=== PATIENT | female | born 1940 | race Caucasian/White ===

== ENCOUNTER 2019-01-16 17:13 | Inpatient (IN) ==
[2019-01-16] MEDS ORDERED: MORPHINE SULFATE 4 MG/ML SYRG IV ONE (17:19)
[2019-01-16 18:05] LABS: Urine Bilirubin Negative (NEGATIVE); Urine Blood Negative /ul (NEGATIVE); Urine Ketone Negative (NEGATIVE); Urine Nitrite Negative (NEGATIVE); Urine Protein Negative (NEGATIVE); Urine Urobilinogen Normal (NORMAL)
[2019-01-16 18:10] LABS: Urine Appearance Clear (CLEAR); Urine Bacteria None Seen; Urine Color Yellow; Urine RBC 0-5 /hpf (0-5); Urine WBC None Seen /hpf (0-5)
[2019-01-16 18:44] LABS: Hematocrit 37.7 % (37.0-47.0); Hemoglobin 12.5 gm/dL (12.5-16.0); Mean Cell Volume 91.5 fl (78-100); Mean Corpuscular Hemoglobin 30.3 pg (27-31); Mean Corpuscular Hgb Conc 33.2 g/dl (32-36); Mean Platelet Volume 9.6 fl (8-12.5); Neutrophil # 5.4 K/mm3 (1.3-6.0); Neutrophil % 74.1 % (42-75.0); Platelet Count 224 K/mm3 (150-450); Red Blood Count 4.12 M/mm3 (4.2-5.4); Red Cell Distribution Width 13.5 % (11.5-14.0); White Blood Count 7.3 K/mm3 (4.0-10.5)
[2019-01-16 18:54] LABS: Prothrombin Time (Patient) 11.1 Seconds (9.1-10.7)
[2019-01-16 18:55] LABS: INR 1.13 INR (0.92-1.08); Partial Thrombolplastin Time 25.8 Seconds (24-32)
[2019-01-16 18:57] LABS: Albumin * 3.7 gm/dl (3.4-5.0); Anion Gap 13.1 mmol/L (6.8-13.8); Bilirubin, Total 0.6 mg/dL (0.0-1.1); Ca. Corrected For Albumin 8.9 mg/dL (8.4-10.2); Carbon Dioxide 28.6 mmol/L (24-32.6); Potassium 3.7 mmol/L (3.4-4.6); Total Protein 6.9 gm/dL (6.2-8.2)
--- NOTE | 2019-01-16 19:17 | ERNOTE ---
Lower Extremity HPI - Narrative Date of Service: 01/16/19 - General Lower Extremities Pain: hip: left Time Seen by Provider: 01/16/19 17:18 Source: patient, RN notes reviewed Exam Limitations: no limitations - Immun/Allergies/Home Medications Immunizations: IMMUNIZATION HX Immunizations Up to Date Yes History of Influenza Vaccine Yes Hx Pneumococcal Vaccination Yes Allergies/Adverse Reactions: Allergies Allergy/AdvReac Type Severity Reaction Status Date / Time pravastatin [From Pravachol] AdvReac Unknown Achy Arms Verified 01/16/19 17:19 Home Medications: HOME MEDICATIONS Ascorbic Acid [Vitamin C] 1,000 mg PO DAILY 04/29/12 [Last Taken Unknown] Calcium Carbonate/Vitamin D3 [Calcium 600 + Vit D Caplet] 1 ea PO DAILY 04/29/12 [Last Taken Unknown] aspirin 81 mg tablet,delayed release 81 mg PO DAILY 11/30/17 [Last Taken Unknown] omega-3 fatty acids 1,000 mg capsule 2,000 mg PO DAILY cap 11/30/17 [Last Taken Unknown] metoprolol tartrate 25 mg tablet 12.5 mg PO BID #60 tab 02/05/18 [Last Taken Unknown] rosuvastatin 20 mg tablet 20 mg PO HS #90 tab 12/05/18 [Last Taken Unknown] - History of Present Illness Narrative: Hazel is a 78 year old female brought to the ED by ambulance after a fall. She was at a friend's house when she missed a step and fell onto her left hip. She reports pain in her left groin. She has not been able to bear weight on the injured extremity. She has no prior history of injury to her left hip. She denies any other injuries. Date (Duration): 01/16/19 Occurred: this afternoon Method of Injury: Reports: fell Loss of Consciousness: Reports: no loss of consciousness Modifying Factors - (Improves): Reports: immobilization Modifying Factors - (Worsens): Reports: movement Associated Symptoms: Reports: unable to bear weight. Denies: snapping, popping sensation Other Injuries: Reports: none Subsequent Symptoms: Denies: sensory loss, numbness, motor loss Prior Treament: Denies: recently seen, similar symptoms before Review of Systems - Review of Systems Constitutional: Absent: recent illness, fever, malaise EYE: Present: no symptoms reported ENT: Present: no symptoms reported Respiratory: Absent: shortness of breath, cough Cardiology: Absent: chest pain, syncope, edema Gastrointestinal/Abdominal: Absent: nausea, abdominal pain Genitourinary: Present: no symptoms reported Musculoskeletal: Present: muscle pain, joint pain. Absent: back pain, neck pain Skin: Absent: lesions, lumps, change in color Neurological: Absent: weakness, numbness, tingling Endocrine: Present: no symptoms reported Hematologic/Lymphatic: Absent: easy bruising, easy bleeding Psych: Present: no symptoms reported Medical History (Updated 09/04/18 @ 18:04 by Corinne Sanchez MD) Abnormality on bone densitometry Onset Date: ~09/04/07 Spine 1.1, hip 1.1 Atrial fibrillation Carotid bruit Chronic sinusitis Colonic polyp Onset Date: ~12/02/03 hyperplastic Diverticulosis of colon Dysphagia Encounter for Hemoccult screening Onset Date: ~09/25/07 negative x3 Essential hypertension Onset Date: ~08/07/13 GERD (gastroesophageal reflux disease) 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 Herron History of colonoscopy Onset Date: ~[address] Palma, hyperplastic polyp 2005 Dr. Hickman, WNL repeat 10 years History of esophagogastroduodenoscopy (EGD) Onset Date: ~12/26/13 w/biopsy, mild gastritis, Dr. Palma [facility] History of exploratory laparotomy Onset Date: ~12/10/89 resecting cystic mesothelioma of the pelvis in the cul-de-sac History of knee replacement Onset Date: Unknown bilateral 1990-left; 1996-right History of left heart catheterization Onset Date: ~1996 due to EF-70% w/ minimal blockage History of lobectomy of lung Onset Date: ~01/23/11 Left upper lobe History of tonsillectomy Onset Date: ~1952 History of total abdominal hysterectomy and bilateral salpingo-oophorectomy Onset Date: ~1990 [facility] Family History: Family History (Updated 11/30/17 @ 14:17 by Kamla Steiner CMA) Brother Heart disease hx of bypass Father , age 59 COPD (chronic obstructive pulmonary disease) Black lung disease coal deliverer Mother , age 65 Myocardial infarction Colon cancer, Onset Age: 60 Sister , age 65 Diabetes Heart disease Social History: (Last Reviewed 01/16/19 @ 18:56 by Suzie Olivo NP) Social History: adopted: No foster care: No Marital status: household members: spouse number of children: 3 current occupational status: retired Previous occupational history: Grocery Deliverer Highest education level completed: high school graduate Service: No Tobacco: Smoking Status: Never smoker Alcohol: alcohol intake: current Alcohol type: wine alcohol intake frequency: a few times a week Substance Use: substance use type: does not use Dietary Habits: caffeine: Yes Physical Exam - Physical Exam General Appearance: Present: wd/wn, alert, mild distress, anxious Head Exam: Present: normal inspection, no evidence of injury Eye Exam: Normal inspection: bilateral Neck: Present: normal inspection, nontender, supple Respiratory: Present: no respiratory distress, normal breath sounds, no a ccessory muscle use, lungs clear Cardiovascular/Chest: Present: regular rate, rhythm, no murmur, normal peripheral pulses Peripheral Pulses: N=norm/S=strong/W=weak/B=bound/A=absent: Dorsalis-pedis (R): Normal, Dorsalis-pedis (L): Normal Gastrointestinal/Abdominal: Present: nontender, nondistended, soft Extremity Exam: Present: no edema, decreased range of motion - Left hip, bony tenderness - Left hip Neurological Exam: Present: alert, oriented, normal mood/affect, no mot or/sensory deficits Skin Exam: Present: normal color, warm/dry Progress - Results and Orders Patient's Lab Results:: I have reviewed the patient's lab results. - Vital Signs Patient's Vital Signs:: I have reviewed the patient's vital signs. Vital Signs: Vital Signs 01/16/19 17:17 01/16/19 17:25 Temperature 36.9 C Pulse Rate 72 72 Respiratory Rate 15 15 Blood Pressure 156/64 H 148/61 O2 Sat by Pulse Oximetry 94 95 - X-Ray X-Ray #1 X-Ray: hip - Left Interpretation: Interp. by me X-ray Comments: Intertrochanteric fracture of left hip X-Ray #2 X-Ray: chest Interpretation: Interp. by me X-ray Comments: S/P left upper lobectomy, no acute process noted - Progress/Reassessment Chief Complaint: Hip Pain/Injury Progress:: Improved Plan - Plan Plan: [facility] was contacted. The patient will likely have surgery tomorrow. Dr. Turner was contacted and agreed to admit the patient to med/surg. Plans discussed with patient. She is pleasant and agreeable. She was given 4 mg of Morphine IV prior to her xray and has not required any additional pain medication. Departure Clinical Impression: Hip fracture, left Qualifiers: Encounter type: initial encounter Fracture type: closed Qualified Code(s): S72.002A - Fracture of unspecified part of neck of left femur, initial encounter for closed fracture - Departure Disposition: Still a patient Condition: Stable Referrals: Corinne Sanchez MD [Primary Care Provider] -
--- NOTE | 2019-01-16 20:49 | HP ---
Chief Complaint - Chief Complaint Date of Service: 01/16/19 Time of Service: 20:28 Chief Complaint: left hip pain History of Present Illness: 78-year-old female presented to the ER today following a ground-level fall with left hip pain. X-ray from the ER confirmed left intertrochanteric hip fracture likely requiring a left total hip arthroplasty with Ortho tomorrow. [facility] Momin has been consulted, Dr. Swanson agrees to take back for surgery tomorrow. Patient has significant medical history with A. fib currently only been rate controlled as well as history of resected left upper bronchus neoplasm. Both are stable and overall patient is in pretty good shape. Both her vital signs and lab work are in an acceptable range, no issues here. Patient has good kidney function is not anemic. Main concern at this time as patient is slightly nauseated from the pain and the pain medicine she received in the ER is wearing off. Patient was admitted to the floor under inpatient status. 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 Herron History of colonoscopy Onset Date: ~[address] Palma, hyperplastic polyp 2006 Dr. Hickman, WNL repeat 10 years History of esophagogastroduodenoscopy (EGD) Onset Date: ~12/26/13 w/biopsy, mild gastritis, Dr. Palma [facility] History of exploratory laparotomy Onset Date: ~12/10/89 resecting cystic mesothelioma of the pelvis in the cul-de-sac History of knee replacement Onset Date: Unknown bilateral 1990-left; 1996-right History of left heart catheterization Onset Date: ~1996 due to EF-70% w/ minimal blockage History of lobectomy of lung Onset Date: ~01/23/11 Left upper lobe History of tonsillectomy Onset Date: ~1952 History of total abdominal hysterectomy and bilateral salpingo-oophorectomy Onset Date: ~[address] 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 Absent: Vomiting Genitourinary: Present: No Symptoms Reported Musculoskeletal: Present: Joint Pain Neurological: Absent: Numbness, Parasthesia, Tingling Skin: Present: No Symptoms Reported Immunizations: IMMUNIZATION HX Immunizations Up to Date Yes History of Influenza Vaccine Yes Hx Pneumococcal Vaccination Yes Allergies/Adverse Reactions: Allergies Allergy/AdvReac Type Severity Reaction Status Date / Time pravastatin [From Pravachol] AdvReac Unknown Achy Arms Verified 01/16/19 17:19 Home Medications: HOME MEDICATIONS Ascorbic Acid [Vitamin C] 1,000 mg PO DAILY 04/29/12 [Last Taken Unknown] Calcium Carbonate/Vitamin D3 [Calcium 600 + Vit D Caplet] 1 ea PO BID 04/29/12 [Last Taken Unknown] aspirin 81 mg tablet,delayed release 81 mg PO DAILY 11/30/17 [Last Taken Unknown] metoprolol tartrate 25 mg tablet 12.5 mg PO BID #60 tab 02/05/18 [Last Taken Unknown] rosuvastatin 20 mg tablet 20 mg PO HS #90 tab 12/05/18 [Last Taken Unknown] Exam - Exam Vital Signs: Vital Signs - Last Taken Temp 36.6 C 01/16/19 20:01 Pulse 79 01/16/19 20:01 Resp 16 01/16/19 20:01 BP 128/52 01/16/19 20:01 Pulse Ox 98 01/16/19 20:01 Constitutional: Present: Alert, Oriented x3, Cooperative, Moderate distress Eye Exam: bilateral eye: normal inspection, PERRL, EOMI Neck: Present: non-tender, supple, normal inspection Back Exam: Present: normal inspection, no CVA tenderness, no vertebral tenderness Breasts: Present: Exam deferred Respiratory: Present: lungs clear, normal breath sounds Cardiovascular/Chest: Present: no murmur, irregularly irregular Peripheral Pulses: dorsalis-pedis (R): 2+, dorsalis-pedis (L): 2+ Abdomen: Present: Normal bowel sounds, soft, nontender, nondistended Extremity: Present: leg pain, swelling. Absent: pedal edema Neurologic: Present: alert, normal mood/affect, oriented x 3. Absent: motor weakness, sensory deficit Appearance: Present: appropriate appearance, appropriate insight Eye contact: Present: cooperative, good eye contact Thoughts: Present: normal thought pattern, normal mood /affect Diagnostic Studies: Abnormal Lab Results 01/16/19 01/16/19 01/16/19 Range/Units 18:35 18:35 18:37 RBC 4.12 L (4.2-5.4) M/mm3 Immature Gran % (Auto) 1.10 H (0.001-0.429) % Immature Gran # (Auto) 0.08 H (0.000-0.0310) K/mm3 Lymphocytes % 17.6 L (20-51) % Lymphocytes # 1.29 L (1.5-3.5) k/mm3 PT 11.1 H (9.1-10.7) Seconds INR (Anticoag Therapy) 1.13 H (0.92-1.08) INR ALT 13 L (19-67) U/L Laboratory Results WBC 7.3 K/mm3 (4.0-10.5) 01/16/19 18:35 RBC 4.12 M/mm3 (4.2-5.4) L 01/16/19 18:35 Hgb 12.5 gm/dL (12.5-16.0) 01/16/19 18:35 Hct 37.7 % (37.0-47.0) 01/16/19 18:35 MCV 91.5 fl (78-100) 01/16/19 18:35 MCH 30.3 pg (27-31) 01/16/19 18:35 MCHC 33.2 g/dl (32-36) 01/16/19 18:35 RDW 13.5 % (11.5-14.0) 01/16/19 18:35 Plt Count 224 K/mm3 (150-450) 01/16/19 18:35 MPV 9.6 fl (8-12.5) 01/16/19 18:35 Immature Gran % (Auto) 1.10 % (0.001-0.429) H 01/16/19 18:35 Immature Gran # (Auto) 0.08 K/mm3 (0.000-0.0310) H 01/16/19 18:35 74.1 % (42-75.0) 01/16/19 18:35 17.6 % (20-51) L 01/16/19 18:35 6.4 % (0.0-9) 01/16/19 18:35 0.5 % (0.0-3.0) 01/16/19 18:35 0.3 % (0.0-1.0) 01/16/19 18:35 Nucleated RBC % 0.0 k/mm3 (0-1) 01/16/19 18:35 5.4 K/mm3 (1.3-6.0) 01/16/19 18:35 1.29 k/mm3 (1.5-3.5) L 01/16/19 18:35 0.5 k/mm3 (0.0-1.0) 01/16/19 18:35 0.0 k/mm3 (0.0-0.7) 01/16/19 18:35 Absolute Basophils 0.0 k/mm3 (0.0-0.1) 01/16/19 18:35 PT 11.1 Seconds (9.1-10.7) H 01/16/19 18:37 INR (Anticoag Therapy) 1.13 INR (0.92-1.08) H 01/16/19 18:37 PTT (Karen) 25.8 Seconds (24-32) 01/16/19 18:37 Sodium 139 mmol/L (132-142) 01/16/19 18:35 139 mmol/L (130-142) 01/16/19 18:35 Potassium 3.7 mmol/L (3.4-4.6) 01/16/19 18:35 Chloride 101 mmol/L (97-106) 01/16/19 18:35 Carbon Dioxide 28.6 mmol/L (24-32.6) 01/16/19 18:35 13.1 mmol/L (6.8-13.8) 01/16/19 18:35 BUN 14 mg/dL (3-23) 01/16/19 18:35 0.70 mg/dL (0.4-1.4) 01/16/19 18:35 Est GFR (Non-Af Amer) 86 mL/min (60-130) 01/16/19 18:35 20.0 (9.0-21.6) 01/16/19 18:35 105 mg/dL (70-110) 01/16/19 18:35 Calcium 9.0 mg/dL (7.9-10.9) 01/16/19 18:35 Calcium Adj for Albumin 8.9 mg/dL (8.4-10.2) 01/16/19 18:35 0.6 mg/dL (0.0-1.1) 01/16/19 18:35 AST 19 U/L (0-48) 01/16/19 18:35 ALT 13 U/L (19-67) L 01/16/19 18:35 58 U/L (50-170) 01/16/19 18:35 6.9 gm/dL (6.2-8.2) 01/16/19 18:35 3.7 gm/dl (3.4-5.0) 01/16/19 18:35 Yellow 01/16/19 17:53 Clear (CLEAR) 01/16/19 17:53 6.0 pH (5.0-7.0) 01/16/19 17:53 Ur Specific [place] 1.010 SP.GR. (1.005-1.010) 01/16/19 17:53 Negative mg/dL (NEGATIVE) 01/16/19 17:53 Negative mg/dL (NEGATIVE) 01/16/19 17:53 Negative mg/dL (NEGATIVE) 01/16/19 17:53 Negative /ul (NEGATIVE) 01/16/19 17:53 Negative (NEGATIVE) 01/16/19 17:53 Negative mg/dl (NEGATIVE) 01/16/19 17:53 Normal EU/dl (NORMAL) 01/16/19 17:53 Ur Leukocyte Esterase Negative /ul (NEGATIVE) 01/16/19 17:53 0-5 /hpf (0-5) 01/16/19 17:53 None seen /hpf (0-5) 01/16/19 17:53 Ur Epithelial Cells 0-5 /hpf (0-5) 01/16/19 17:53 None seen (NONE) 01/16/19 17:53 No culture indicated 01/16/19 17:53 Assessment/Plan - Narrative Narrative: 78-year-old female with left intertrochanteric hip fracture admitted to the floor as inpatient. Ortho has been consulted and likely to back for surgery tomorrow. Vital signs are stable, blood pressure well controlled. Patient cleared for surgery from a medical standpoint. We will continue morphine 2 mg every hour as needed for pain control as well as Zofran 4 mg IV as needed as needed for nausea. Patient will be made n.p.o. at midnight with normal saline running at 100 mils an hour thereafter. Will order IV hypertensive medications if needed though this is unlikely. Will follow with the patient after surgery tomorrow, patient is in agreement with treatment plan. Nurse will call with any questions or concerns. SCDs more in the right leg only comfort measures and DVT prophylaxis. Current medications continued tonight and will be resumed once patient is no longer n.p.o. - Assessment/Plan (1) Hip fracture, left Problem: Acute Qualifiers: Encounter type: initial encounter Fracture type: closed Qualified Code(s): S72.002A - Fracture of unspecified part of neck of left femur, initial encounter for closed fracture (2) Paroxysmal A-fib Problem: Chronic (3) Hypertension Problem: Chronic Qualifiers:
[2019-01-16] MEDS: MORPHINE SULFATE 2 MG/ML DISP.SYRIN IV PRN ×2 (20:52→22:54)
[2019-01-16] MEDS: ONDANSETRON HCL/PF 2 MG/ML VIAL IV PRN (20:53)
[2019-01-16] MEDS ORDERED: ROSUVASTATIN CALCIUM 10 MG TABLET ONE (21:50)
[2019-01-16] MEDS ORDERED: METOPROLOL TARTRATE 100 MG TABLET ONE (21:51)
[2019-01-16] MEDS: ROSUVASTATIN CALCIUM 20 MG TABLET PO SCH (21:55)
[2019-01-16] MEDS: METOPROLOL TARTRATE 25 MG TABLET PO SCH (21:57)
[2019-01-17] MEDS ORDERED: NORMAL SALINE 1,000 ML IV PRN ×2 (00:01→14:29)
[2019-01-17] MEDS: MORPHINE SULFATE 2 MG/ML DISP.SYRIN IV PRN ×4 (03:24→18:18)
[2019-01-17] MEDS ORDERED: ceFAZolin SODIUM 1 GM VIAL IV PRN (06:00)
--- NOTE | 2019-01-17 08:16 | CONS ---
- Reason for consultation (1) Hip fracture, left Date of Service: 01/17/19 HPI - General Date of Service: 01/17/19 Narrative: 78-year-old female brought to the ER status post a ground-level fall with left hip pain. X-rays revealed a intertrochanteric femur fracture. Patient was admitted and has been monitored and seen by the medical team. Patient notes her pain is well controlled currently. She notes her pain is worse with movement better with rest. She notes she does have a history of cancer with a lobectomy of her lung, cardiac cath, A. fib, and surgical history including total joint replacements. Patient notes no other acute events currently. Source: patient, family - History of Present Illness Allergies/Adverse Reactions: Allergies pravastatin [From Pravachol] Adverse Reaction (Unknown, Verified 01/16/19 17:19) Achy Arms Home Medications: Home Medications Medication Instructions Recorded Last Taken Ascorbic Acid [Vitamin C] 1,000 mg PO DAILY 04/29/12 Unknown Calcium Carbonate/Vitamin D3 1 ea PO BID 04/29/12 Unknown [Calcium 600 + Vit D Caplet] aspirin 81 mg tablet,delayed 81 mg PO DAILY 11/30/17 Unknown release metoprolol tartrate 25 mg tablet 12.5 mg PO BID #60 tab 02/05/18 Unknown rosuvastatin 20 mg tablet 20 mg PO HS #90 tab 12/05/18 Unknown Procedures Colonoscopy (02/28/06) Endoscopic polypectomy of large intestine (12/02/03) Medications - Medications Current Medications: Current Medications Sodium Chloride (Sodium Chloride 0.9%) 1,000 mls @ 100 mls/hr IV .Q10H PRN PRN Reason: HYDRATION Stop: 02/16/19 00:02 Last Admin: 01/17/19 00:27 Dose: 100 mls/hr Documented by: Metoprolol Tartrate (Lopressor) 12.5 mg PO BID FIFI Stop: 02/15/19 21:01 Last Admin: 01/16/19 21:57 Dose: Not Given Documented by: Morphine Sulfate (Morphine Sulfate) 2 mg IV Q1H PRN PRN Reason: Pain Stop: 02/15/19 20:25 Last Admin: 01/17/19 06:51 Dose: 2 mg Documented by: Ondansetron HCl (Zofran) 4 mg IV Q4H PRN PRN Reason: Nausea Stop: 02/15/19 20:26 Last Admin: 01/16/19 20:53 Dose: 4 mg Documented by: Rosuvastatin Calcium (Crestor) 20 mg PO HS FIFI Stop: 02/15/19 21:01 Last Admin: 01/16/19 21:55 Dose: 20 mg Documented by: Physical Examination - Exam Vital Signs: Vital Signs - Last Taken Temp 36.2 C 01/17/19 06:17 Pulse 75 01/17/19 06:17 Resp 18 01/17/19 06:17 BP 121/51 01/17/19 06:17 Pulse Ox 93 01/17/19 06:17 O2 Oxygen Delivery Method Room Air Constitutional: Present: Alert, Cooperative, No distress Respiratory: Present: no respiratory distress Extremity: Present: other - LLE--> no obvious wounds or deformity, diffuse tenderness about left hip, sensation intact light touch, distal capillary refill brisk, 5/5 plantar flexion dorsiflexion of the ankle Eye contact: Present: cooperative Thoughts: Present: normal thought pattern - Results and Findings: Lab/Microbiology results last 24 hrs: Abnormal/Pending Laboratory Last 24 HRS 01/16/19 01/16/19 01/16/19 18:37 18:35 18:35 RBC 4.12 L Immature Gran % (Auto) 1.10 H Immature Gran # (Auto) 0.08 H Lymphocytes % 17.6 L Lymphocytes # 1.29 L PT 11.1 H INR (Anticoag Therapy) 1.13 H ALT 13 L - Assessments/Findings (1) Hip fracture, left Problem: Acute Qualifiers: Encounter type: initial encounter Fracture type: closed Qualified Code(s): S72.002A - Fracture of unspecified part of neck of left femur, initial encounter for closed fracture Plan - Plan Plan: - 78 y/o female admitted status post a ground-level fall with a left intertrochanteric femur fracture. -Discussed with patient conservative or surgical intervention including risks versus benefits including but not limited to infection, bleeding, malunion versu s nonunion fracture healing, DVT risk, cardiac and stroke risk, inherent surgical risk. Discussed with patient the treatment process and the continued care and follow-up including physical therapy as well as monitoring postoperatively. Patient wishes to proceed with surgical intervention. Consent was obtained all questions were answered with the family and patient. Plan to proceed with surgical intervention on 01/17/2019. Patient will continue her stay in the hospital postoperatively for monitoring, PT/OT, pain control, postoperative complications.
[2019-01-17] MEDS ORDERED: DEXTROSE 5%-0.5 NORMAL SALINE 1,000 ML IV PRN (08:45)
--- NOTE | 2019-01-17 08:47 | PN ---
Subjective - Date and Time Seen Date: 01/17/19 Time: 08:29 Subjective Narrative: Patient is AAO x 3. Afebrile. she tripped over uneven floor in her friend's house and fell and could not stand up due to severe pain. Objective - Review of Systems Generalized/Overall Review: Denies: Chills, Fever EENTM: Denies: Blurred Vision Respiratory: Denies: Cough, Shortness of Breath, Orthopnea, Wheezing Cardiac: Denies: Chest Pain, Edema, Palpitations Abdominal: Denies: Nausea, Vomiting, Abdominal Pain Genitourinary Symptoms: Denies: Urgency, Frequency Musculoskeletal Complaints: Reports: Joint Pain Neurological: Denies: Headache Skin: Denies: Rash, Change in Color Endocrine: Denies: Intolerance to Cold, Intolerance to Heat Misc: All systems neg except as marked - Vitals Vitals: Last Vital Signs Temp 36.2 C 01/17/19 06:17 Pulse 75 01/17/19 06:17 Resp 18 01/17/19 06:17 BP 121/51 01/17/19 06:17 Pulse Ox 93 01/17/19 06:17 - Abnormal Lab Findings Abnormal Lab Findings: Abnormal Lab Results 01/16/19 01/16/19 01/16/19 Range/Units 18:35 18:35 18:37 RBC 4.12 L (4.2-5.4) M/mm3 Immature Gran % (Auto) 1.10 H (0.001-0.429) % Immature Gran # (Auto) 0.08 H (0.000-0.0310) K/mm3 Lymphocytes % 17.6 L (20-51) % Lymphocytes # 1.29 L (1.5-3.5) k/mm3 PT 11.1 H (9.1-10.7) Seconds INR (Anticoag Therapy) 1.13 H (0.92-1.08) INR ALT 13 L (19-67) U/L - Exam Constitutional: Present: Alert, Oriented x3, Cooperative, Elderly ENT Exam: Present: hearing grossly normal Neck: Present: supple. Absent: lymphadenopathy (R), lymphadenopathy (L) Respiratory: Present: normal breath sounds, No rales, No wheezing Cardiovascular/Chest: Present: regular rate, rhythm, no JVD, no murmur Abdomen: Present: Normal bowel sounds, soft, nontender, nondistended Extremity: Present: no pedal edema, no calf tenderness, other - SCD on Cauti Physician Documentation - Urinary Catheter Management Urethral (Sullivan) Date of Insertion: 01/16/19 Time of Insertion: 19:03 Assessment/Plan Plan Narrative: Continue with present management and current medications. she is for OR today. she will have PT/OT and DVT prophylaxis post surgery. - Problems/Diagnosis (1) Fall Problem: Acute Qualifiers: Encounter type: initial encounter Qualified Code(s): W19.XXXA - Unspecified fall, initial encounter (2) Hip fracture, left Problem: Acute Qualifiers: Encounter type: initial encounter Fracture type: closed Qualified Code(s): S72.002A - Fracture of unspecified part of neck of left femur, initial encounter for closed fracture Narrative: left intertorchanteric fracture. for CRIF. (3) Hyperlipidemia Problem: Chronic Qualifiers: Hyperlipidemia type: pure hypercholesterolemia Qualified Code(s): E78.00 - Pure hypercholesterolemia, unspecified; E78.0 - Pure hypercholesterolemia (4) Hypertension Problem: Chronic Qualifiers: (5) Paroxysmal A-fib Problem: Chronic
[2019-01-17] MEDS: METOPROLOL TARTRATE 25 MG TABLET PO SCH ×2 (10:15→20:25)
--- NOTE | 2019-01-17 12:28 | ANES ---
Anesthesia Pre Procedure Eval Vitals/Labs: Last Vital Signs Temp 36.9 C 01/17/19 11:11 Pulse 84 01/17/19 11:11 Resp 18 01/17/19 11:11 BP 124/50 01/17/19 11:11 Pulse Ox 95 01/17/19 11:11 HOME MEDICATIONS Ascorbic Acid [Vitamin C] 1,000 mg PO DAILY 04/29/12 [Last Taken Unknown] Calcium Carbonate/Vitamin D3 [Calcium 600 + Vit D Caplet] 1 ea PO BID 04/29/12 [Last Taken Unknown] aspirin 81 mg tablet,delayed release 81 mg PO DAILY 11/30/17 [Last Taken Unknown] metoprolol tartrate 25 mg tablet 12.5 mg PO BID #60 tab 02/05/18 [Last Taken Unknown] rosuvastatin 20 mg tablet 20 mg PO HS #90 tab 12/05/18 [Last Taken Unknown] Allergies/Adverse Reactions: Allergies Allergy/AdvReac Type Severity Reaction Status Date / Time pravastatin [From Pravachol] AdvReac Unknown Achy Arms Verified 01/16/19 17:19 - Planned Procedure Planned Procedure: LEFT HIP FRACTURE Medication List Reviewed:: Yes Allergies Verified: Yes Medical History (Updated 01/16/19 @ 20:49 by Woody Turner DO) Abnormality on bone densitometry Onset Date: ~09/04/07 Spine 1.1, hip 1.1 Atrial fibrillation Carotid bruit Chronic sinusitis Colonic polyp Onset Date: ~12/02/03 hyperplastic Diverticulosis of colon Dysphagia Encounter for Hemoccult screening Onset Date: ~09/25/07 negative x3 Essential hypertension Onset Date: ~08/07/13 GERD (gastroesophageal reflux disease) 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 Solano-mily History of colonoscopy Onset Date: ~[address] Palma, hyperplastic polyp 2006 Dr. Hickman, WNL repeat 10 years History of esophagogastroduodenoscopy (EGD) Onset Date: ~12/26/13 w/biopsy, mild gastritis, Dr. Palma [facility] History of exploratory laparotomy Onset Date: ~12/10/89 resecting cystic mesothelioma of the pelvis in the cul-de-sac History of knee replacement Onset Date: Unknown bilateral 1990-left; 1996-right History of left heart catheterization Onset Date: ~1996 due to EF-70% w/ minimal blockage History of lobectomy of lung Onset Date: ~01/23/11 Left upper lobe History of tonsillectomy Onset Date: ~1952 History of total abdominal hysterectomy and bilateral salpingo-oophorectomy Onset Date: ~1990 [facility] Family History (Updated 11/30/17 @ 14:17 by Kamla Steiner [facility]) Brother Heart disease hx of bypass Father , age 59 COPD (chronic obstructive pulmonary disease) Black lung disease trial examiner Mother , age 65 Myocardial infarction Colon cancer, Onset Age: 60 Sister , age 65 Diabetes Heart disease - Family Anesthesia History Family History:: no untoward family reactions to anesthesia, no familial bleeding tendencies, no family history of clotting disorders, no family history of premature - Airway/Neck/Teeth Teeth Condition: intact - some loose Neck Exam: full range of motion Mallampatti Score: 3 Thyromental (T-M) distance: > 6 cm Mandibulo Hyoid distance: > 3 cm - Respiratory Respiratory Physical: lungs clear Smoking Status: Never smoker Sleep Apnea currently treated: No Sleep Apnea by current assessment: No - Cardiovascular Cardiac History: hyperlipidemia, valvular heart disease Tolerate Activity: Fair Heart Sounds: S1 & S2, Regular - Anesthesia Assessment and Plan ASA Class: PS, III Anesthesia Type Plan: Spinal - Echocardiogram aortic sclerosis without stenosis
[2019-01-17] MEDS ORDERED: MAG HYDROX/ALUMINUM HYD/SIMETH 30 ML UDC PO PRN (14:29)
[2019-01-17] MEDS ORDERED: MAGNESIUM HYDROXIDE 30 ML UDC PO PRN (14:29)
[2019-01-17] MEDS ORDERED: ACETAMINOPHEN 500 MG TABLET PO PRN (14:29)
[2019-01-17] MEDS ORDERED: MORPHINE SULFATE 4 MG/ML SYRG IV PRN (14:29)
--- NOTE | 2019-01-17 14:29 | ANES ---
Post Anesthesia Discharge - Transfer of Care Transfer of Care handoff given to nurse: Yes - Discharge from PACU Discharge from PACU when meets criteria: Yes - Comfortable in PACU.
[2019-01-17] MEDS ORDERED: RINGER'S SOLUTION,LACTATED 1,000 ML IV ONE (14:33)
--- NOTE | 2019-01-17 14:35 | OR ---
Operative Report - Dictated Report Narrative: Date: 01/17/2019 Surgeon: Marcus Swanson M.D. Larriman Helper: Uche Momin PA-C provided a set of essential, skilled, educated hands that assisted in positioning, transfer, retraction, manipulation, irrigation, closure of wounds, and placement of dressings all of which could not be provided by the available surgical crew. Preoperative diagnosis: Left intertrochanteric femur fracture Postoperative diagnosis: Left intertrochanteric femur fracture Operations and procedures: 1. Closed reduction, short cephalo-medullary fixation left intertrochanteric femur fracture 2. Intraoperative interpretation of radiographs Anesthesia: Spinal Specimens: None Estimated blood loss: 200 milliliters Retained implants: [employer] Trigen InterTAN 130 degree size 10 mm by 18 centimeter nail with 95 millimeter lag screw and 90 millimeter compression screw, with distal locking screw Complications: None Indications for procedure: Hazel is a 78-year-old female who injured the left leg after a fall from standing height. They were admitted to the hospital after being evaluated in the emergency department. Once the medical provider felt that they were stable for surgical treatment, the risks and benefits alternatives were discussed. The risks of , blood clots, bleeding, infection, nerve/tendon/blood vessel injury, malunion, nonunion, failure of implants, painful implants, arthrosis, and need for additional procedures were discussed. The extremity was marked and consent was obtained on the floor. Procedure: After marking the operative extremity on the floor, the patient was taken to the operating room. A timeout was performed. IV antibiotics consisting of 1 g of Ancef were administered. A spinal anesthetic was induced by anesthesia, and the patient was then placed onto a fracture table with a well-padded perineal post. The non-operative leg was placed in a well-padded well leg dickerson in lithotomy position with an SCD on the leg. The operative leg was placed in a well-padded traction boot. Longitudinal traction, internal rotation, flexion, and adduction were utilized in order to reduce the fracture. Preliminary images were attained utilizing C-arm in both the AP and lateral views. This confirmed that we had obtained adequate visualization of the fracture as well as reduction. Next the hip was then prepped and draped in a standard sterile fashion. Next, the guidewire was placed percutaneously proximal to the greater trochanter to nida a starting point at the tip of the greater trochanter centered on the lateral view. This was advanced down to the level below the lesser trochanter. A scalpel was utilized to dissect down to the greater trochanter in order to lace the soft tissue protector down to bone. The entry reamer was then advanced down the proximal femur to the level of the lesser trochanter. The above nail was then selected and impacted into place. The outrigger was utilized in order to confirm the appropriate depth of the nail. Using the alignment device on the outrigger, a tiffanie incision was made over the lateral femur. Sharp dissection was carried through the iliotibial band down to the proximal femur. The guidewire was was placed into the femoral head in a center center position on AP and lateral views. A tip apex distance less than 25 mm combined was obtained. Once we felt that we had placed the guidewire in the appropriate position, it was measured. Next the compression screw entry drill was advanced through the lateral cortex. This was then drilled down to the appropriate depth for the compression screw, again confirming that we are within the confines the bone. The derotational bar was then placed and the lag screw was drilled to the appropriate depth. The lag screw was then secured in place ensuring that we were within the confines of the bone. The compression screw was then inserted allowing for compression while releasing the traction on the leg. Using C-arm this was visualized to allow for compression across the fracture site. Once it was felt we had adequately stabilized the intertrochanteric fracture, the distal interlocking screw was placed in a static position confirmed to be the appropriate length and within the nail on both AP and lateral views. The nail was secured allowing for controlled compression and the outrigger was removed. The wounds were then thoroughly irrigated. Final images were obtained. The hip was placed through range of motion and showed no crepitance. The deep fascia was closed with 0 Vicryl, the subcutaneous tissue with 3-0 Vicryl, and the skin was closed with kiley. Sterile dressings of Xeroform, 4 x 4s, and tegaderm were applied. All sponge, sharp, and instrument counts were correct prior to closing the wounds. The patient was then awoken and transferred to the postanesthesia care unit in stable condition.
--- NOTE | 2019-01-17 16:41 | ANES ---
Post Anesthesia Assessment - Vital Signs Vitals: Last Vital Signs Temp 36.9 C 01/17/19 14:45 Pulse 91 01/17/19 14:45 Resp 18 01/17/19 14:45 BP 107/49 01/17/19 14:45 Pulse Ox 97 01/17/19 14:45 Airway Patency: Normal - Mental Status Level Of Consciousness: Awake, Alert, Appropriate - Pain Level Pain Score: 0 - N/V Assessment Nausea/Vomiting Presence: None Dehydration:: No
[2019-01-17] MEDS: ONDANSETRON HCL/PF 2 MG/ML VIAL IV PRN ×2 (17:15→21:16)
[2019-01-17] MEDS ORDERED: POTASSIUM CHLORIDE IN WATER 100 ML IV ONE (17:31)
[2019-01-17] MEDS: oxyCODONE HCL/ACETAMINOPHEN 1 TAB TABLET PO PRN (19:27)
[2019-01-17] MEDS: ceFAZolin SODIUM 1 GM in DEXTROSE 5 % IN WATER 100 ML IV SCH ×2 (19:45)
[2019-01-17] MEDS: ROSUVASTATIN CALCIUM 20 MG TABLET PO SCH (20:25)
[2019-01-17] MEDS: SENNOSIDES/DOCUSATE SODIUM 1 TAB TABLET PO SCH (20:26)
[2019-01-18] MEDS: ONDANSETRON HCL/PF 2 MG/ML VIAL IV PRN ×2 (01:16→07:51)
[2019-01-18] MEDS: ceFAZolin SODIUM 1 GM in DEXTROSE 5 % IN WATER 100 ML IV SCH ×4 (04:01→13:42)
[2019-01-18] MEDS ORDERED: RINGER'S SOLUTION,LACTATED 1,000 ML IV PRN (06:00)
[2019-01-18 06:13] LABS: Hematocrit 27.8 % (37.0-47.0); Hemoglobin 9.3 gm/dL (12.5-16.0); Mean Cell Volume 91.1 fl (78-100); Mean Corpuscular Hemoglobin 30.5 pg (27-31); Mean Corpuscular Hgb Conc 33.5 g/dl (32-36); Platelet Count 130 K/mm3 (150-450); Red Blood Count 3.05 M/mm3 (4.2-5.4); Red Cell Distribution Width 13.4 % (11.5-14.0); White Blood Count 8.5 K/mm3 (4.0-10.5)
[2019-01-18 06:22] LABS: Anion Gap 10.7 mmol/L (6.8-13.8); BUN/Creatinine Ratio 12.3 (9.0-21.6); Calcium * 7.3 mg/dL (7.9-10.9); Carbon Dioxide 27.1 mmol/L (24-32.6); Estimated Creat Clear 63.1; Potassium 3.8 mmol/L (3.4-4.6)
--- NOTE | 2019-01-18 08:29 | PN ---
Subjective - Date and Time Seen Date: 01/18/19 Time: 07:00 Subjective Narrative: Patient did well overnight. Patient complaining of mild left hip pain, however controlled. Patient has no other complaints Objective - Review of Systems Generalized/Overall Review: Denies: Weakness, Chills, Fever Respiratory: Denies: Shortness of Breath Cardiac: Denies: Chest Pain Musculoskeletal Complaints: Reports: Joint Pain - left hip pain - Vitals Vitals: Last Vital Signs Temp 36.6 C 01/18/19 06:00 Pulse 100 01/18/19 06:00 Resp 16 01/18/19 06:00 BP 103/54 01/18/19 06:00 Pulse Ox 100 01/18/19 06:00 - Abnormal Lab Findings Abnormal Lab Findings: Abnormal Lab Results 01/18/19 01/18/19 Range/Units 06:09 06:09 RBC 3.05 L (4.2-5.4) M/mm3 Hgb 9.3 L (12.5-16.0) gm/dL Hct 27.8 L (37.0-47.0) % Plt Count 130 L (150-450) K/mm3 Random Glucose 130 H (70-110) mg/dL Calcium 7.3 L (7.9-10.9) mg/dL - Exam Constitutional: Present: Alert, Oriented x3, Cooperative Respiratory: Present: lungs clear, normal breath sounds Cardiovascular/Chest: Present: normal peripheral pulses, regular rate, rhythm, no chest tenderness, no edema Abdomen: Present: Normal bowel sounds, soft Extremity: Present: normal range of motion, non-tender, no pedal edema Skin Exam: Present: normal color Appearance: Present: appropriate appearance Eye contact: Present: cooperative, good eye contact Cauti Physician Documentation - Urinary Catheter Management Urethral (Sullivan) Urethral Indwelling: No Reason for Continuing Indwelling Catheter: Not indwelling catheter Date of Insertion: 01/16/19 Time of Insertion: 19:03 Assessment/Plan Plan Narrative: 1. Left Hip Fracture. S/P repair POD # 1 - Continue as per ortho recommendations - PT on board 2. Paroxysmal A-Fib - Resume medications 3. Hypertension - Hold medication, BP on the lower end Diet: Regular DVT Prophylaxis: with Lovenox 40 mg SC CODE STATUS: FULL CODE Disposition: Will continue current care and will await ortho recommendations - Problems/Diagnosis (1) Hip fracture, left Problem: Acute Qualifiers: Encounter type: initial encounter Fracture type: closed Qualified Code(s): S72.002A - Fracture of unspecified part of neck of left femur, initial encounter for closed fracture (2) Hypertension Problem: Chronic Qualifiers: (3) Paroxysmal A-fib Problem: Chronic
--- NOTE | 2019-01-18 08:42 | PN ---
Subjective - Date and Time Seen Date: 01/18/19 Time: 08:34 Subjective Narrative: No acute events overnight. Complaining of surgical soreness this am as expected. No other complaints. Objective - Vitals Vitals: Last Vital Signs Temp 36.6 C 01/18/19 06:00 Pulse 100 01/18/19 06:00 Resp 16 01/18/19 06:00 BP 103/54 01/18/19 06:00 Pulse Ox 100 01/18/19 06:00 - Abnormal Lab Findings Abnormal Lab Findings: Abnormal Lab Results 01/18/19 01/18/19 Range/Units 06:09 06:09 RBC 3.05 L (4.2-5.4) M/mm3 Hgb 9.3 L (12.5-16.0) gm/dL Hct 27.8 L (37.0-47.0) % Plt Count 130 L (150-450) K/mm3 Random Glucose 130 H (70-110) mg/dL Calcium 7.3 L (7.9-10.9) mg/dL - Exam Exam Narrative: Gen: A&Ox3, NAD Resp: breathing nonlabored CV: RRR MSK: LLE--> dressings with small amount of serosanguinous drainage, tender about hip, SILT, cap refill brisk Cauti Physician Documentation - Urinary Catheter Management Urethral (Sullivan) Date of Insertion: 01/16/19 Time of Insertion: 19:03 Assessment/Plan Plan Narrative: 78 yo F w/ L intertrochanteric femur fx s/p short cephalomedullary nailing, POD #1. -WBAT, ROM as tolerated -foot/ankle films negative -oral pain meds -benadryl for itching -PT/OT -DVT ppx: lovenox/SCDs/teds -monitor for withdrawal -dispo: continue inpatient care
[2019-01-18] MEDS: METOPROLOL TARTRATE 25 MG TABLET PO SCH ×2 (10:09→21:40)
[2019-01-18] MEDS: oxyCODONE HCL/ACETAMINOPHEN 1 TAB TABLET PO PRN ×2 (10:59→19:42)
[2019-01-18] MEDS: ENOXAPARIN SODIUM 40 MG/0.4 ML SYRG SC SCH (13:43)
[2019-01-18] MEDS: SENNOSIDES/DOCUSATE SODIUM 1 TAB TABLET PO SCH (21:39)
[2019-01-18] MEDS: ROSUVASTATIN CALCIUM 20 MG TABLET PO SCH (21:39)
[2019-01-19] MEDS: oxyCODONE HCL/ACETAMINOPHEN 1 TAB TABLET PO PRN ×4 (03:56→19:55)
[2019-01-19 05:53] LABS: Mean Corpuscular Hemoglobin 30.5 pg (27-31); Mean Corpuscular Hgb Conc 33.9 g/dl (32-36); Mean Platelet Volume 9.7 fl (8-12.5); Platelet Count 134 K/mm3 (150-450); Red Blood Count 2.49 M/mm3 (4.2-5.4); Red Cell Distribution Width 13.4 % (11.5-14.0); White Blood Count 8.9 K/mm3 (4.0-10.5)
[2019-01-19 06:01] LABS: Anion Gap 11.5 mmol/L (6.8-13.8); BUN/Creatinine Ratio 16.2 (9.0-21.6); Calcium * 7.6 mg/dL (7.9-10.9); Carbon Dioxide 27.5 mmol/L (24-32.6); Estimated Creat Clear 60.4
[2019-01-19 06:18] LABS: Hematocrit 22.4 % (37.0-47.0); Hemoglobin 7.6 gm/dL (12.5-16.0)
[2019-01-19] MEDS ORDERED: diphenhydrAMINE HCL 50 MG CAPSULE PO ONE (08:13)
[2019-01-19] MEDS ORDERED: FUROSEMIDE 10 MG/ML VIAL IV ONE (08:13)
[2019-01-19] MEDS: METOPROLOL TARTRATE 25 MG TABLET PO SCH ×2 (10:27→20:08)
--- NOTE | 2019-01-19 11:07 | PN ---
Subjective - Date and Time Seen Date: 01/19/19 Time: 08:20 Subjective Narrative: Patient is doing well has no complaints overnight. Pain has improved in comparison to the previous day. Patient was able to get up yesterday and ambulate with PT. Patient complaining of fatigue. Discussed the patient regards to considering a possible blood transfusion if hemoglobin continues to drop. Appetite is a baseline patient has not had a bowel movement. Pain is well controlled. Has no other concerns. Objective - Review of Systems Generalized/Overall Review: Reports: Fatigue Respiratory: Denies: Shortness of Breath Cardiac: Denies: Chest Pain Abdominal: Denies: Nausea, Vomiting Genitourinary Symptoms: Denies: No Symptoms Reported Musculoskeletal Complaints: Reports: Joint Pain - Left hip pain - Vitals Vitals: Last Vital Signs Temp 36.1 C 01/19/19 10:00 Pulse 97 01/19/19 10:27 Resp 20 01/19/19 10:00 BP 97/46 01/19/19 10:27 Pulse Ox 97 01/19/19 10:00 - Abnormal Lab Findings Abnormal Lab Findings: Abnormal Lab Results 01/19/19 01/19/19 01/19/19 Range/Units 06:00 06:00 08:25 RBC 2.49 L (4.2-5.4) M/mm3 Hgb 7.6 L* (12.5-16.0) gm/dL Hct 22.4 L* (37.0-47.0) % Plt Count 134 L (150-450) K/mm3 Random Glucose 121 H (70-110) mg/dL Calcium 7.6 L (7.9-10.9) mg/dL Crossmatch See Detail - Exam Constitutional: Present: Alert, Oriented x3, Cooperative, Well developed Respiratory: Present: chest non-tender, lungs clear, normal breath sounds, no r espiratory distress Cardiovascular/Chest: Present: normal peripheral pulses, regular rate, rhythm, no edema, no murmur Abdomen: Present: Normal bowel sounds, soft, nontender Extremity: Present: non-tender, normal inspection, no pedal edema, no calf tenderness Skin Exam: Present: normal color, warm/dry Appearance: Present: appropriate appearance Eye contact: Present: cooperative Cauti Physician Documentation - Urinary Catheter Management Urethral (Sullivan) Urethral Indwelling: No Date of Insertion: 01/16/19 Time of Insertion: 19:03 Date of Removal: 01/18/19 Time of Removal: 08:00 Assessment/Plan Plan Narrative: 1. Left Hip Fracture. S/P repair POD # 2 - Continue as per ortho recommendations - PT on board 2. Anemia due to acute Blood loss - Dr Swanson notified - Patient is asymptomatic - Type and screen completed and 2 units on hold if necessary for transfusion. 3. Paroxysmal A-Fib - Resume medications 4. Hypertension - Hold medication, BP on the lower end Diet: Regular DVT Prophylaxis: with Lovenox 40 mg SC CODE STATUS: FULL CODE Disposition: -Will continue current care -will await ortho recommendations - Problems/Diagnosis (1) Hip fracture, left Problem: Acute Qualifiers: Encounter type: initial encounter Fracture type: closed Qualified Code(s): S72.002A - Fracture of unspecified part of neck of left femur, initial encounter for closed fracture (2) Anemia associated with acute blood loss Problem: Acute (3) Hypertension Problem: Chronic Qualifiers: (4) Paroxysmal A-fib Problem: Chronic
[2019-01-19 14:06] LABS: Hematocrit 24.5 % (37.0-47.0); Hemoglobin 8.5 gm/dL (12.5-16.0)
[2019-01-19] MEDS: ENOXAPARIN SODIUM 40 MG/0.4 ML SYRG SC SCH (14:08)
[2019-01-19] MEDS: SENNOSIDES/DOCUSATE SODIUM 1 TAB TABLET PO SCH (20:08)
[2019-01-19] MEDS: ROSUVASTATIN CALCIUM 20 MG TABLET PO SCH (20:08)
[2019-01-20] MEDS: oxyCODONE HCL/ACETAMINOPHEN 1 TAB TABLET PO PRN ×2 (04:44→13:06)
[2019-01-20 06:07] LABS: Mean Cell Volume 92.3 fl (78-100); Mean Corpuscular Hemoglobin 30.1 pg (27-31); Mean Corpuscular Hgb Conc 32.6 g/dl (32-36); Mean Platelet Volume 9.9 fl (8-12.5); Neutrophil # 4.2 K/mm3 (1.3-6.0); Neutrophil % 78.3 % (42-75.0); Platelet Count 150 K/mm3 (150-450); Red Blood Count 2.46 M/mm3 (4.2-5.4); Red Cell Distribution Width 13.6 % (11.5-14.0); White Blood Count 5.3 K/mm3 (4.0-10.5)
[2019-01-20 06:08] LABS: Hemoglobin 7.4 gm/dL (12.5-16.0)
[2019-01-20 06:09] LABS: Hematocrit 22.7 % (37.0-47.0)
[2019-01-20 06:22] LABS: Albumin * 2.3 gm/dl (3.4-5.0); BUN/Creatinine Ratio 21.3 (9.0-21.6); Bilirubin, Total 0.4 mg/dL (0.0-1.1); Ca. Corrected For Albumin 8.8 mg/dL (8.4-10.2); Calcium * 7.8 mg/dL (7.9-10.9); Carbon Dioxide 31.1 mmol/L (24-32.6); Potassium 4.1 mmol/L (3.4-4.6); Total Protein 5.6 gm/dL (6.2-8.2)
[2019-01-20] MEDS: METOPROLOL TARTRATE 25 MG TABLET PO SCH ×2 (08:13→20:23)
--- NOTE | 2019-01-20 08:46 | PN ---
Subjective - Date and Time Seen Date: 01/20/19 Time: 08:37 Subjective Narrative: Patient says yesterday she felt weak but better today. She does have episodes of LH when she stands up. She has walked up to the BR but not in the hallways yet. Objective - Review of Systems Generalized/Overall Review: Reports: Weakness. Denies: Chills, Fever EENTM: Denies: Blurred Vision Respiratory: Denies: Cough, Shortness of Breath Cardiac: Denies: Chest Pain, Edema, Palpitations Abdominal: Reports: Constipation. Denies: Nausea, Vomiting, Hematemesis, Abdominal Pain Genitourinary Symptoms: Denies: Urgency, Frequency Musculoskeletal Complaints: Reports: Joint Pain Neurological: Denies: Anxiety, Depressed Skin: Denies: Lesions, Rash - Vitals Vitals: Last Vital Signs Temp 37.1 C 01/20/19 06:43 Pulse 95 01/20/19 08:13 Resp 12 01/20/19 06:43 BP 124/54 01/20/19 08:13 Pulse Ox 95 01/20/19 06:43 - Abnormal Lab Findings Abnormal Lab Findings: Abnormal Lab Results 01/19/19 01/19/19 01/20/19 Range/Units 08:25 13:57 06:00 RBC 2.46 L (4.2-5.4) M/mm3 Hgb 8.5 L 7.4 L* (12.5-16.0) gm/dL Hct 24.5 L 22.7 L* (37.0-47.0) % Immature Gran % (Auto) 0.80 H (0.001-0.429) % Immature Gran # (Auto) 0.04 H (0.000-0.0310) K/mm3 Neutrophils % 78.3 H (42-75.0) % Lymphocytes % 9.0 L (20-51) % Monocytes % 9.6 H (0.0-9) % Lymphocytes # 0.48 L (1.5-3.5) k/mm3 Random Glucose (70-110) mg/dL Calcium (7.9-10.9) mg/dL AST (0-48) U/L ALT (19-67) U/L Total Protein (6.2-8.2) gm/dL Albumin (3.4-5.0) gm/dl Crossmatch See Detail 01/20/19 Range/Units 06:00 RBC (4.2-5.4) M/mm3 Hgb (12.5-16.0) gm/dL Hct (37.0-47.0) % Immature Gran % (Auto) (0.001-0.429) % Immature Gran # (Auto) (0.000-0.0310) K/mm3 Neutrophils % (42-75.0) % Lymphocytes % (20-51) % Monocytes % (0.0-9) % Lymphocytes # (1.5-3.5) k/mm3 Random Glucose 114 H (70-110) mg/dL Calcium 7.8 L (7.9-10.9) mg/dL AST 81 H (0-48) U/L ALT 69 H (19-67) U/L Total Protein 5.6 L (6.2-8.2) gm/dL Albumin 2.3 L (3.4-5.0) gm/dl Crossmatch - Exam Constitutional: Present: Alert, Oriented x3, Cooperative, Elderly ENT Exam: Present: hearing grossly normal Neck: Present: supple Respiratory: Present: normal breath sounds, No rales, No wheezing Cardiovascular/Chest: Present: regular rate, rhythm, no JVD, systolic murmur - questionable Abdomen: Present: Normal bowel sounds, soft, nontender, nondistended Extremity: Present: no pedal edema, no calf tenderness Cauti Physician Documentation - Urinary Catheter Management Urethral (Sullivan) Urethral Indwelling: No Date of Insertion: 01/16/19 Time of Insertion: 19:03 Date of Removal: 01/18/19 Time of Removal: 08:00 Assessment/Plan Plan Narrative: Will likely need NH for more PT/OT before going home. - Problems/Diagnosis (1) Acute blood loss anemia Problem: Acute Narrative: Hb is down to 7.4. will do orthostatics - if positive will give BT. she does get episodes of clinically LH when standing up. will start FeSO4. ADDENDUM: 145/60, HR 111- laying; 136/47, HR 115 sitting; 120/69, HR 130-standing and she became lightheaded per nurse . will give 1 unit of BT before sending to NH. (2) Elevated AST (SGOT) Problem: Acute Narrative: and ALT likely due to acetominophen /percoset/ and statin medicatiom. will hold statin medication for now. (3) Constipation Problem: Acute Narrative: MON now. she is on Sennoides/Colace daily and MOM PRN. (4) Fall Problem: Acute Qualifiers: Encounter type: initial encounter Qualified Code(s): W19.XXXA - Unspecified fall, initial encounter (5) Hip fracture, left Problem: Acute Qualifiers: Encounter type: initial encounter Fracture type: closed Qualified Code(s): S72.002A - Fracture of unspecified part of neck of left femur, initial encounter for closed fracture (6) Hyperlipidemia Problem: Chronic Qualifiers: Hyperlipidemia type: pure hypercholesterolemia Qualified Code(s): E78.00 - Pure hypercholesterolemia, unspecified; E78.0 - Pure hypercholesterolemia (7) Hypertension Problem: Chronic Qualifiers: (8) Paroxysmal A-fib Problem: Chronic
[2019-01-20] MEDS ORDERED: MAGNESIUM HYDROXIDE 30 ML UDC PO ONE (08:53)
[2019-01-20] MEDS: FERROUS SULFATE 325 MG TABLET PO SCH (11:33)
--- NOTE | 2019-01-20 11:55 | PN ---
Subjective - Date and Time Seen Date: 01/20/19 Time: 11:53 Subjective Narrative: No events overnight. Pain controlled. Orthostatic symptoms this am. Objective - Vitals Vitals: Last Vital Signs Temp 36.7 C 01/20/19 10:58 Pulse 98 01/20/19 10:58 Resp 20 01/20/19 10:58 BP 116/60 01/20/19 10:58 Pulse Ox 99 01/20/19 10:58 - Abnormal Lab Findings Abnormal Lab Findings: Abnormal Lab Results 01/19/19 01/19/19 01/20/19 Range/Units 08:25 13:57 06:00 RBC 2.46 L (4.2-5.4) M/mm3 Hgb 8.5 L 7.4 L* (12.5-16.0) gm/dL Hct 24.5 L 22.7 L* (37.0-47.0) % Immature Gran % (Auto) 0.80 H (0.001-0.429) % Immature Gran # (Auto) 0.04 H (0.000-0.0310) K/mm3 Neutrophils % 78.3 H (42-75.0) % Lymphocytes % 9.0 L (20-51) % Monocytes % 9.6 H (0.0-9) % Lymphocytes # 0.48 L (1.5-3.5) k/mm3 Random Glucose (70-110) mg/dL Calcium (7.9-10.9) mg/dL AST (0-48) U/L ALT (19-67) U/L Total Protein (6.2-8.2) gm/dL Albumin (3.4-5.0) gm/dl Crossmatch See Detail 01/20/19 Range/Units 06:00 RBC (4.2-5.4) M/mm3 Hgb (12.5-16.0) gm/dL Hct (37.0-47.0) % Immature Gran % (Auto) (0.001-0.429) % Immature Gran # (Auto) (0.000-0.0310) K/mm3 Neutrophils % (42-75.0) % Lymphocytes % (20-51) % Monocytes % (0.0-9) % Lymphocytes # (1.5-3.5) k/mm3 Random Glucose 114 H (70-110) mg/dL Calcium 7.8 L (7.9-10.9) mg/dL AST 81 H (0-48) U/L ALT 69 H (19-67) U/L Total Protein 5.6 L (6.2-8.2) gm/dL Albumin 2.3 L (3.4-5.0) gm/dl Crossmatch - Exam Exam Narrative: Gen: A&Ox3, NAD Resp: breathing nonlabored on RA CV: RRR MSK: LLE--> dressings with bloody drainage, mild postop swelling and tenderness, SILT, distal cap refill brisk Cauti Physician Documentation - Urinary Catheter Management Urethral (Sullivan) Urethral Indwelling: No Date of Insertion: 01/16/19 Time of Insertion: 19:03 Date of Removal: 01/18/19 Time of Removal: 08:00 Assessment/Plan Plan Narrative: 78 yo F w/ L intertrochanteric femur fx s/p closed reduction and cephalomedullary nailing, POD #3. -WBAT, ROM as tolerated. -oral pain meds -reg diet -PT/OT -DVT ppx: lovenox/SCDs/teds -continue monitoring for signs of withdrawal -acute blood loss anemia - 1 unit pRBCs given, continue to monitor -continue care per Medicine team -dispo: plan for d/c to SNF. Ortho Discharge Recommendations: 1. WBAT, ROM as tolerated. 2. Dressing changes every 2-3 days with 4x4 gauze and tape. Keep wounds completely dry. 3. DVT ppx: 10 days lovenox followed by 6 weeks of 325 mg ASA daily. 4. PT at SNF followed by outpatient PT once discharged for progressive upright mobility and strengthening. 5. Follow up in Orthopedic clinic 2 weeks postoperatively ([phone]).
[2019-01-20] MEDS: ENOXAPARIN SODIUM 40 MG/0.4 ML SYRG SC SCH (13:41)
[2019-01-20] MEDS: SENNOSIDES/DOCUSATE SODIUM 1 TAB TABLET PO SCH (20:24)
[2019-01-21 06:51] LABS: Hematocrit 28.5 % (37.0-47.0); Hemoglobin 9.8 gm/dL (12.5-16.0)
[2019-01-21] MEDS: oxyCODONE HCL/ACETAMINOPHEN 1 TAB TABLET PO PRN ×2 (07:21→13:54)
[2019-01-21] MEDS: FERROUS SULFATE 325 MG TABLET PO SCH (08:25)
[2019-01-21] MEDS: METOPROLOL TARTRATE 25 MG TABLET PO SCH (08:25)
[2019-01-21] MEDS ORDERED: BISACODYL 10 MG SUPP.RECT RC ONE (08:32)
[2019-01-21] MEDS ORDERED: BISACODYL 5 MG TABLET.DR PO ONE (08:32)
--- NOTE | 2019-01-21 08:35 | DS ---
(1) Hip fracture, left Diagnosis(s): s/p CRIF with cephalomedullary nail fixation Problem: Acute Qualifiers: Encounter type: initial encounter Fracture type: closed Qualified Code(s): S72.002A - Fracture of unspecified part of neck of left femur, initial encounter for closed fracture (2) Acute blood loss anemia Diagnosis(s): s/p BT 1 unit PRBC Problem: Acute (3) Elevated AST (SGOT) Diagnosis(s): and ALT- likely due to acetominophen/Percoset/statin. will hold statin for now but she will need her pain meds and will monitor LFT Problem: Acute (4) Constipation Diagnosis(s): will give dulcolax PO/OR prior to discharge today Problem: Acute (5) Fall Problem: Acute Qualifiers: Encounter type: initial encounter Qualified Code(s): W19.XXXA - Unspecified fall, initial encounter (6) Hyperlipidemia Problem: Chronic Qualifiers: Hyperlipidemia type: pure hypercholesterolemia Qualified Code(s): E78.00 - Pure hypercholesterolemia, unspecified; E78.0 - Pure hypercholesterolemia (7) Hypertension Problem: Chronic Qualifiers: (8) Paroxysmal A-fib Problem: Chronic Date of Discharge:: 01/21/19 Description of Stay: Hazel bowers is a 78 year old white female with PMH of Hypertension, Hyperlipidemia, PAFib who was admitted on 01/16/2019 for a fall and left hip pain. She tripped over an uneven floor in her neighbor's house. She had a left intertrochanteric fracture and Orthopedics did a CRIF with cephalomedullary nail fixation the following day. She had PT/OT. Her Hb went down to 7.4 and needed 1 unit of PRBC as she was orthostatic. Her Hb today is 9.8. Her ALT/AST went slightly up likely due to her pain medications -acetominophen/percoset and rosuvastatin. Crestor was put on hold. She is stable to be discharged today. She will follow orthopedic discharge instructions-Ortho Discharge Recommendations: 1. WBAT, ROM as tolerated. 2. Dressing changes every 2-3 days with 4x4 gauze and tape. Keep wounds completely dry. 3. DVT ppx: 10 days lovenox followed by 6 weeks of 325 mg ASA daily. 4. PT at SNF followed by outpatient PT once discharged for progressive upright mobility and strengthening. 5. Follow up in Orthopedic clinic 2 weeks postoperatively ([phone]). Follow up with me when she follows up with Orthopedics and will do a follow up CBC, CMP. Procedures Performed: see notes below - CRIF with cephalomedullary nail fixation Results and Findings: Lab Pending Results 01/16/19 17:53: Urine Color Yellow, Urine Appearance Clear, Urine pH 6.0, Ur Specific [place] 1.010, Urine Protein Negative, Urine Glucose (UA) Negative, Urine Ketones Negative, Urine Blood Negative, Urine Nitrate Negative, Urine Bilirubin Negative, Urine Urobilinogen Normal, Ur Leukocyte Esterase Negative, Urine RBC 0-5, Urine WBC None seen, Ur Epithelial Cells 0-5, Urine Bacteria None seen, Urine Culture Comments No culture indicated 01/16/19 18:35: WBC 7.3, RBC 4.12 L, Hgb 12.5, Hct 37.7, MCV 91.5, MCH 30.3, MCHC 33.2, RDW 13.5, Plt Count 224, MPV 9.6, Immature Gran % (Auto) 1.10 H, Immature Gran # (Auto) 0.08 H, Neutrophils % 74.1, Lymphocytes % 17.6 L, Monocytes % 6.4, Eosinophils % 0.5, Basophils % 0.3, Nucleated RBC % 0.0, Neutrophils # 5.4, Lymphocytes # 1.29 L, Monocytes # 0.5, Eosinophils # 0.0, Absolute Basophils 0.0 01/16/19 18:35: Sodium 139, Plasma Sodium 139, Potassium 3.7, Chloride 101, Carbon Dioxide 28.6, Anion Gap 13.1, BUN 14, Creatinine 0.70, Est GFR (Non-Af Amer) 86, BUN/Creatinine Ratio 20.0, Random Glucose 105, Calcium 9.0, Calcium Adj for Albumin 8.9, Total Bilirubin 0.6, AST 19, ALT 13 L, Alkaline Phosphatase 58, Total Protein 6.9, Albumin 3.7 01/16/19 18:37: PT 11.1 H, INR (Anticoag Therapy) 1.13 H, PTT ([place]) 25.8 01/18/19 06:09: WBC 8.5, RBC 3.05 L, Hgb 9.3 L, Hct 27.8 L, MCV 91.1, MCH 30.5, MCHC 33.5, RDW 13.4, Plt Count 130 L, MPV 9.0 01/18/19 06:09: Sodium 133, Plasma Sodium 133, Potassium 3.8, Chloride 99, Carbon Dioxide 27.1, Anion Gap 10.7, BUN 8, Creatinine 0.65, Est GFR (Non-Af Amer) 93, BUN/Creatinine Ratio 12.3, Random Glucose 130 H, Calcium 7.3 L 01/19/19 06:00: WBC 8.9, RBC 2.49 L, Hgb 7.6 L*, Hct 22.4 L*, MCV 90.0, MCH 30.5, MCHC 33.9, RDW 13.4, Plt Count 134 L, MPV 9.7 01/19/19 06:00: Sodium 132, Plasma Sodium 132, Potassium 4.0, Chloride 97, Carbon Dioxide 27.5, Anion Gap 11.5, BUN 11, Creatinine 0.68, Est GFR (Non-Af Amer) 89, BUN/Creatinine Ratio 16.2, Random Glucose 121 H, Calcium 7.6 L 01/19/19 08:25: Blood Type O Positive, Antibody Screen Negative, Crossmatch See Detail 01/19/19 13:57: Hgb 8.5 L, Hct 24.5 L 01/20/19 06:00: WBC 5.3 D, RBC 2.46 L, Hgb 7.4 L*, Hct 22.7 L*, MCV 92.3, MCH 30.1, MCHC 32.6, RDW 13.6, Plt Count 150, MPV 9.9, Immature Gran % (Auto) 0.80 H, Immature Gran # (Auto) 0.04 H, Neutrophils % 78.3 H, Lymphocytes % 9.0 L, Monocytes % 9.6 H, Eosinophils % 1.7, Basophils % 0.6, Nucleated RBC % 0.0, Neutrophils # 4.2, Lymphocytes # 0.48 L, Monocytes # 0.5, Eosinophils # 0.1, Absolute Basophils 0.0 01/20/19 06:00: Sodium 137, Plasma Sodium 137, Potassium 4.1, Chloride 101, Carbon Dioxide 31.1, Anion Gap 9.0, BUN 13, Creatinine 0.61, Est GFR (Non-Af Amer) 101, BUN/Creatinine Ratio 21.3, Random Glucose 114 H, Calcium 7.8 L, Calcium Adj for Albumin 8.8, Total Bilirubin 0.4, AST 81 H, ALT 69 H, Alkaline Phosphatase 110, Total Protein 5.6 L, Albumin 2.3 L 01/21/19 06:45: Hgb 9.8 L, Hct 28.5 L Discharge Location: [facility] Disposition: SNF Condition: Stable Level of Care: SNF Discharge Activity: Weight bearing - as tolerated Discharge Diet: Low salt, Low fat/chol Mcc Therapy: Physical Therapy, Occupation Therapy Referrals: Corinne Sanchez MD [Primary Care Provider] - Problem Oriented Discharge Instructions to Patient/Family: Total Hip Replacement, [id number], Total Hip Replacement, Care After, [id number] Additional Patient Instructions (free text): -WBAT, ROM as tolerated. Continue wearing NOELLE hose. Last dose of Lovenox is on 01/28/19. Start 325mg ASA 01/29/19 for 6 weeks. CBC and CMP on the same day as you follow up with ortho and Dr Sanchez. Please have drawn prior to your appointment with Dr Sanchez. Follow up appointment with Dr. Swanson in ortho on 01/27/19 at 12:45pm. Follow up appointment with Dr. Sanchez on 01/27/19 at 2:15pm. Prescriptions (Any new or edited meds): Aspirin 325 mg PO DAILY #42 tab Ferrous Sulfate 325 mg PO DAILY #30 tab Enoxaparin Sodium [Lovenox] 40 mg SQ DAILY #7 syringe Mag Hydrox/Aluminum Hyd/Simeth [Maalox Plus Suspension] 30 ml PO Q6H PRN #1 udc PRN Reason: Indigestion oxyCODONE HCL/ACETAMINOPHEN [Percocet 5 MG/325 MG] 1 tab PO Q4H PRN #30 tab PRN Reason: Moderate Pain (Pain Scale 4-6) Sennosides/Docusate Sodium [Senokot-S] 2 tab PO HS #60 tab Acetaminophen [Tylenol] 1,000 mg PO Q6H PRN #30 tab PRN Reason: Mild Pain (Pain Scale 1-3) Complete Home Medications List: Complete Home Medication List: Ascorbic Acid [Vitamin C] 1,000 mg PO DAILY 04/29/12 Calcium Carbonate/Vitamin D3 [Calcium 600-Vit D3 400 Cap[place]] 1 ea PO BID 04/29/12 aspirin 81 mg tablet,delayed release 81 mg PO DAILY 11/30/17 metoprolol tartrate 25 mg tablet 12.5 mg PO BID #60 tab 02/05/18 rosuvastatin 20 mg tablet 20 mg PO HS #90 tab 12/05/18 Acetaminophen [Tylenol] 1,000 mg PO Q6H PRN #30 tab 01/21/19 Aspirin 325 mg PO DAILY #42 tab 01/21/19 Enoxaparin Sodium [Lovenox] 40 mg SQ DAILY #7 syringe 01/21/19 Ferrous Sulfate 325 mg PO DAILY #30 tab 01/21/19 Mag Hydrox/Aluminum Hyd/Simeth [Maalox Plus Suspension] 30 ml PO Q6H PRN #1 udc 01/21/19 Sennosides/Docusate Sodium [Senokot-S] 2 tab PO HS #60 tab 01/21/19 oxyCODONE HCL/ACETAMINOPHEN [Percocet 5 MG/325 MG] 1 tab PO Q4H PRN #30 tab 01/21/19 Amb Orders for Discharge: CBC Time Frame: 01/27/19, Location: Laboratory Comprehensive Metabolic Panel Time Frame: 01/27/19, Location: Laboratory
[2019-01-21 13:10] VITALS: BP 127/33
[2019-01-21] MEDS: ENOXAPARIN SODIUM 40 MG/0.4 ML SYRG SC SCH (13:11)
== END 2019-01-21 13:50 | DRG 481 ==
LOC: ER 17:13 → MS 19:04
PROVIDERS: ADMIT Family Medicine; ATTEND Internal Medicine
DX: S72.142A Displaced intertrochanteric fracture of left femur, initial encounter for closed fracture; E78.5 Hyperlipidemia, unspecified; Y92.009 Unspecified place in unspecified non-institutional (private) residence as the place of occurrence of the external cause; R94.5 Abnormal results of liver function studies; D62 Acute posthemorrhagic anemia; K59.00 Constipation, unspecified; I48.0 Paroxysmal atrial fibrillation; W10.8XXA Fall (on) (from) other stairs and steps, initial encounter; I10 Essential (primary) hypertension
CPT/HCPCS: 36415; 71010; 71045; 73502; 80048; 80053; 81001; 85014; 85018; 85025; 85027; 85610; 85730; 86850; 93005; 96374; 97110; 97116; 97162; 97165; 97530; 99284; J2405; P9016